=== PATIENT | female | born 1995 | race Caucasian/White ===

== ENCOUNTER 2018-05-15 15:49 | Emergency (ER) | payer OTHER ==
[2018-05-15 16:44] LABS: ABS Basophils 0 10^3/ul (0-0.2); ABS Eosinophils 0 10^3/ul (0-0.6); ABS Lymphocytes 1.7 10^3/ul (1.0-4.8); ABS Monocytes 0.4 10^3/ul (0-0.8); ABS Neutrophils 3.6 10^3/ul (1.5-7.7); ABS Nucleated RBC 0 10^3/ul; Eosinophil % 0.2 %; Hematocrit 39 % (33-41); Hemoglobin 13.5 g/dL (12.0-16.0); Mean Corpuscular HGB Conc 35 g/dL (31-36); Mean Corpuscular Hemoglobin 31 pg (27-31); Mean Corpuscular Volume 91 fL (80-97); Nucleated Red Blood Cells % 0; Platelet Count 266 10^3/uL (150-450); Red Cell Distribution Width 14 % (10.5-15); White Blood Count 5.8 10^3/uL (3.5-10.8)
[2018-05-15] MEDS ORDERED: NS 0.9% 1000 ML** 1,000 ML IV ONE (16:50)
--- NOTE | 2018-05-15 16:50 | ED ---
Dizziness - HPI Summary HPI Summary: This patient is a 22 year old F presenting to [facility] with a chief complaint of dizziness that began this morning. The patient rates the pain 0/10 in severity. Symptoms aggravated by nothing. Symptoms alleviated by nothing. Patient reports weakness, diarrhea, and abd pain. Patient states she is currently on amoxicillin. - History Of Current Complaint Chief Complaint: EDDizziness Stated Complaint: "WOKE UP FATIGUE,DIZZY" PER PT Time Seen by Provider: 05/15/18 16:42 Hx Obtained From: Patient Onset/Duration: Still Present Timing: Constant Severity Initially: Mild Severity Currently: Mild Character: Dizzy Aggravating Factor(s): Nothing Alleviating Factor(s): Nothing Associated Signs And Symptoms: Positive: Other: - Positive weakness, abd pain, and diarrhea - Allergies/Home Medications Allergies/Adverse Reactions: Allergies Allergy/AdvReac Type Severity Reaction Status Date / Time No Known Allergies Allergy Verified 05/15/18 15:56 PMH/Surg Hx/FS Hx/Imm Hx Previously Healthy: Yes Opthamlomology History: Denies: Hx Legally Blind EENT History: Denies: Hx Deafness Neurological History: Reports: Hx Seizures Infectious Disease History: No Infectious Disease History: Denies: Traveled Outside the [place] in Last 30 Days - Family History Known Family History: Negative: Cardiac Disease - Social History Occupation: Student Lives: Dormitory/Roommates Alcohol Use: Occasionally Hx Substance Use: No Substance Use Type: Reports: None Hx Tobacco Use: No Smoking Status (MU): Never Smoked Tobacco Review of Systems Positive: Abdominal Pain, Diarrhea Neurological: Other - Positive dizziness Positive: Weakness All Other Systems Reviewed And Are Negative: Yes Physical Exam - Summary Physical Exam Summary: Appearance: Well appearing, no pain distress Skin: warm, dry, reflects adequate perfusion Head/face: normal Eyes: EOMI, JAD ENT: mucous membranes moist Neck: supple, non-tender Respiratory: CTA, breath sounds present Cardiovascular: RRR, pulses symmetrical Abdomen: non-tender, soft Bowel Sounds: present Musculoskeletal: normal, strength/ROM intact Neuro: normal, sensory motor intact, A&Ox3 Triage Information Reviewed: Yes Vital Signs On Initial Exam: Initial Vitals Temp Pulse Resp BP Pulse Ox 98 F 62 18 125/75 100 05/15/18 15:53 05/15/18 15:53 05/15/18 15:53 05/15/18 15:53 05/15/18 15:53 Vital Signs Reviewed: Yes Diagnostics - Vital Signs Vital Signs Temp Pulse Resp BP Pulse Ox 05/15/18 16:45 62 128/62 05/15/18 15:53 98 F 62 18 125/75 100 - Laboratory Lab Results: Lab Results 05/15/18 Range/Units 16:32 WBC 5.8 (3.5-10.8) 10^3/uL RBC 4.30 (3.70-4.87) 10^6 /uL Hgb 13.5 (12.0-16.0) g/dL Hct 39 (33-41) % MCV 91 (80-97) fL MCH 31 (27-31) pg MCHC 35 (31-36) g/dL RDW 14 (10.5-15) % Plt Count 266 (150-450) 10^3/uL MPV 7.0 L (7.4-10.4) fL Neut % (Auto) 62.7 % Lymph % (Auto) 30.0 % [place] % (Auto) 6.6 % Eos % (Auto) 0.2 % Baso % (Auto) 0.5 % Absolute Neuts (auto) 3.6 (1.5-7.7) 10^3/ul Absolute Lymphs (auto) 1.7 (1.0-4.8) 10^3/ul Absolute Monos (auto) 0.4 (0-0.8) 10^3/ul Absolute Eos (auto) 0 (0-0.6) 10^3/ul Absolute Basos (auto) 0 (0-0.2) 10^3/ul Absolute Nucleated RBC 0 10^3/ul Nucleated RBC % 0 Result Diagrams: 05/15/18 16:32 05/15/18 16:32 Lab Statement: Any lab studies that have been ordered have been reviewed, and results considered in the medical decision making process. - EKG 1622 Cardiac Rate: Bradycardia EKG Rhythm: Sinus Rhythm - [address] Segment: Normal Summary of EKG Findings: An EKG taken at 1622 reveals sinus bradycardia at 59 BPM with normal axis, nml interval, and no ischemic changes. Dizzy Course/Dx - Course Course Of Treatment: Nurse's notes reviewed. Patient with history of near- syncope/syncope in the past. Now with diarrhea related to antibiotics. No evidence for C. difficile. Stop amoxicillin. No further sore throat. Feeling much better here after IV fluids. Was not orthostatic. Discharged on lactobacillus probiotic and Imodium. - Diagnoses Differential Diagnosis/HQI/PQRI: Hypovolemia, Metabolic Abnormality, Other - Antibiotic associated diarrhea/C. difficile Provider Diagnoses: Diarrhea, Near syncope Discharge - Sign-Out/Discharge Documenting (check all that apply): Patient Departure - Discharge home Patient Received Moderate/Deep Sedation with Procedure: No - Discharge Plan Condition: Improved Disposition: HOME Prescriptions: Lactobacillus Acidophilus* 1 cap PO BID #14 cap Patient Education Materials: Acute Diarrhea (ED), Near Syncope (ED) Referrals: [facility] [Provider Group] Additional Instructions: Stop amoxicillin. You may take Imodium. Drink plenty of fluids, Gatorade G2 or vitamin water may be best. Return if worse, passing out, new symptoms or other concerns. Follow-up with [facility] on Thursday if you're still feeling weak. - Billing Disposition and Condition Condition: IMPROVED Disposition: Home - Attestation Statements Document Initiated by Scribe: Yes Documenting Scribe: Nery Sorenson Provider For Whom Mark is Documenting (Include Credential): Dr. Adin Lawrence MD Scribe Attestation: I, Nery Sorenson, scribed for Dr. Adin Lawrence MD on 05/15/18 at 1805. Scribe Documentation Reviewed: Yes Provider Attestation: The documentation as recorded by the Nery chacon accurately reflects the service I personally performed and the decisions made by me, Dr. Adin Lawrence MD Status of Scribe Document: Viewed
[2018-05-15 16:59] VITALS: BP 120/70
[2018-05-15 17:01] LABS: Anion Gap 7 mmol/L (2-11); BUN/Creatinine Ratio 16.9 (8-20); Blood Urea Nitrogen 15 mg/dL (6-24); CO2 Carbon Dioxide 28 mmol/L (22-32); Calcium 9.3 mg/dL (8.6-10.3); Chloride 100 mmol/L (101-111); EGFR African American 96.9 (>60); EGFR Non-African American 80.1 (>60); Glucose 88 mg/dL (70-100); Potassium 4.3 mmol/L (3.5-5.0); Sodium 135 mmol/L (135-145)
[2018-05-15 17:07] LABS: HCG Pregnancy < 0.60 mIU/mL
== END 2018-05-15 17:47 | disposition home or self-care (01) ==
LOC: ED 15:49
DX: R19.7 Diarrhea, unspecified (principal); R55 Syncope and collapse; R53.1 Weakness; R10.9 Unspecified abdominal pain; R42 Dizziness and giddiness
CPT/HCPCS: 36415; 80048; 84702; 85025; 93005; 96360; 99283